=== PATIENT | male | born 1955 | race Caucasian/White ===

== ENCOUNTER → 2021-07-13 | Outpatient (CLI) | payer OTHER | LOC: M.ULTRA 07:30 | PROVIDERS: ATTEND Internal Medicine | DX: N28.9 Disorder of kidney and ureter, unspecified (principal) ==

== ENCOUNTER → 2021-10-24 | Outpatient (CLI) | payer OTHER ==
[2021-10-24 17:36] LABS: ABSOLUTE EOSINOPHILS 0.2 thou/uL (0.0-0.7); ABSOLUTE LYMPHOCYTES 1.7 thou/uL (0.8-5.3); ABSOLUTE MONOCYTES 0.6 thou/uL (0.0-1.2); ABSOLUTE NEUTROPHILS 4.8 thou/uL (1.6-8.1); BASOPHILS 0.6 %; EOSINOPHILS 2.9 %; HEMATOCRIT 51.9 % (42.0-52.0); HEMOGLOBIN 17.4 gm/dL (14.0-18.0); LYMPHOCYTES 23.1 %; MCH 29.4 pg (26.0-34.0); MCHC 33.6 g/dL (28.0-37.0); MCV 87.7 fL (80.0-100.0); MPV 7.5 fl. (7.2-11.1); NUCLEATED RBCS 0 /100WBC; PLATELET COUNT* 222 thou/uL (150-400); POLYS 65.4 %; RBC 5.92 mil/uL (4.50-6.00); RDW-CV 12.9 % (10.5-14.5); WBC 7.3 thou/uL (4.0-11.0)
[2021-10-24 17:47] LABS: ALBUMIN 3.8 g/dL (3.4-5.0); CALCIUM 8.8 mg/dL (8.5-10.1); CREATININE 1.6 mg/dL (0.6-1.3); POTASSIUM 4.5 mmol/L (3.5-5.1); TOTAL BILIRUBIN 0.6 mg/dL (<0.1-1.0); TOTAL PROTEIN 7.7 g/dL (6.4-8.2)
== END ==
LOC: M.LAB 16:22
PROVIDERS: ATTEND Internal Medicine
DX: I10 Essential (primary) hypertension (principal); R42 Dizziness and giddiness; R94.31 Abnormal electrocardiogram [ECG] [EKG]